=== PATIENT | female | born 1945 | race Caucasian/White ===

== ENCOUNTER → 2020-02-09 11:23 | Outpatient (CLI) | payer MEDICARE, SELFPAY ==
--- NOTE | 2020-02-09 | DI.MRI.S_ITS ---
PROCEDURE: MR SHOULDER LT WO CON INDICATIONS: Adhesive capsulitis of left shoulder TECHNIQUE: Noncontrast oblique coronal T2 fast spin echo with fat saturation, oblique sagittal T1 spin echo and T2 fast spin echo with fat saturation, axial T1 spin echo and T2 fast spin echo with fat saturation through the shoulder. COMPARISON: [facility] [place], CR, XR SHOULDER 2+ VIEWS LEFT, 01/27/2020, 13:32. FINDINGS: Image quality: Excellent. Rotator cuff: There is partial-thickness tear on the bursal surface of the supraspinatus tendon. High-grade partial tear is also present in the subscapularis tendon There is thickening and calcification of the supraspinous tendon at humeral attachment consistent with calcific tendinitis. The infraspinatus tendon appears normal. Sagittal images demonstrate no rotator muscle atrophy. Bones and bursae: No bone marrow contusions or fractures. Mild acromioclavicular and glenohumeral joint degeneration. The acromion demonstrates conventional anatomy, without an os acromiale. No pathologic subacromial-subdeltoid or subcoracoid bursal fluid is present. Capsule and soft tissues: In the absence of intra-articular contrast, there is degenerative fraying of the anterior labrum. The glenohumeral ligaments appear intact. The long head of the biceps tendon demonstrates normal location and morphology. The rotator interval appears normal, without fibrosis. The coracohumeral ligament is normal in thickness. IMPRESSION: 1. Partial-thickness tear of the supraspinatus tendon and superimposed calcific tendinitis of the supraspinatus tendon. 2. High-grade partial-thickness tear of the subscapularis tendon. No tendon retraction or muscle atrophy. 3. 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 5. Degenerative fraying of the anterior labrum. Dictated by: Ida Whyte M.D. on 02/09/2020 at 12:47 Approved by: Ida Whyte M.D. on 02/09/2020 at 17:38
== END ==
PROVIDERS: PCP Internal Medicine; Referring Provider Orthopaedic Surgery; Visit Provider Orthopaedic Surgery
DX: M75.02 Adhesive capsulitis of left shoulder (principal); M75.112 Incomplete rotator cuff tear or rupture of left shoulder, not specified as traumatic; M75.32 Calcific tendinitis of left shoulder
CPT/HCPCS: 73221